=== PATIENT | female | born 1995 | race African-American/Black ===

== ENCOUNTER 2017-05-31 16:52 | Emergency (ER) | payer OTHER ==
[~2017-05-31] VITALS: Ht 154.9 cm; Wt 51.4 kg
[~2017-05-31 16:52] MED LIST: ONDA8TAB10 PO; PROC10TA PO; PYR50 PO
[2017-05-31 16:54] VITALS: BP 109/77; PULSE 74; RESP 16; O2SAT 100
--- NOTE | 2017-05-31 17:51 | ED.REPORT ---
HPI-Abd Pain F Under 39 Date of Service May 31, 2017 ED Provider: Dr. Moreno Pt is a generally healthy 22 y/o female presenting to the ED c/o abdominal cramping onset 2 days ago. The patient saw her PCP 5 days ago for nausea and vomiting and was told she had food poisoning due to bad elk steak the night before. She began to feel better better but 2 days ago she started her menses and was experiencing abdominal cramping and darker colored vaginal bleeding compared to her usual. Her menses did start about 1 week late. She denies increased vaginal bleeding, abnormal vaginal discharge, dysuria, lightheadedness , dizziness. She has a hx of PID in 2011. Nursing Notes Stated Complaint: FOOD POISONING/MENSTRUAL PAIN Chief Complaint: Female Abdominal Pain Nursing Notes Reviewed: Yes Allergies: Coded Allergies: hydrocodone bitartrate (Verified Adverse Reaction, Intermediate, Nausea, ) intolerance causing nausea only Scheduled PRN Ondansetron ODT (Ondansetron ODT) 8 Mg Tab.rapdis 8 MG PO Q4H PRN PRN For Nausea Prochlorperazine Maleate (Prochlorperazine) 10 Mg Tablet 10 MG PO Q8 PRN PRN For Nausea/Vomiting Pyridoxine (Vitamin B-6) 50 Mg Tablet 25 MG PO TID PRN PRN For Nausea General Time Seen by MD: 17:51 Chief Complaint Abdominal pain Hx Obtained From: Patient Arrived By: Walk-in Sudden in Onset?: No Onset Occurred: 2 days ago Symptom Duration: Since onset Progression since Onset: Constant Location: : Diffuse Quality: Cramping Severity: Current: Mild Severity: Maximum: Moderate Similar Sx Previous: No Past Medical History Past Medical History 1. Chronic Migraines 2. h/o PID secondary to Chlamydia, complicated by IUD and renal failure; now resolved (admitted for sepsis in 2012) 3. GERD Past Surgical History Cholecystectomy November 2012 Tonsillectomy Family History Positive for Gallbladder Disease Smoking History Current Some Day Smoker Social History Alcohol Use: Denies alcohol use Drug Use: Denies drug use Ambulatory Status Independent Review of Systems Constitutional: Denies: Chills, Fever Respiratory: Denies: Non-productive cough, Shortness of breath Cardiovascular: Denies: Chest pain, Dyspnea on exertion GI: Reports: Abdominal pain, Nausea, Vomiting, Denies: Diarrhea Female: Reports: Vaginal bleeding - abnl, Denies: Dysuria, Vaginal discharge Complete sys rev & neg: except as marked. Physical Exam Initial Vital Signs Vital Signs (First) Date Time Temp Pulse Resp B/P Pulse Ox O2 Delivery O2 Flow Rate FiO2 05/31/17 16:54 37.2 74 16 109/77 100 Room Air Initial VS: Reviewed, Vital signs normal Head / Eyes: Atraumatic, Normocephalic, PERRL ENT: Mucous membranes moist, Conjunctiva normal, No scleral icterus Neck: Supple, Full range of motion Extremities: Vascular intact, Neuro intact, No swelling Skin: Warm, Dry, No cyanosis Neurologic: Alert, Oriented, Nonfocal Psychiatric: Mood/affect normal, Behavior normal, Normal thought content General/Constitutional: Awake, Alert, No acute distress, Well appearing, Well developed, Well hydrated, Well nourished, Cooperative, Not toxic appearing Respiratory / Chest: Breath sounds NL, Breath sounds = bilat, No respiratory distress, No rales, No rhonchi, No wheezing, No retractions, No stridor Cardiovascular: Heart rate NL, Regular rhythm, Heart sounds NL, No gallop, No murmurs, No rubs Abdomen: Atraumatic, Soft, Non-tender, No guarding, No rebound, BS normoactive , No distention, No palpable mass Back: Full range of motion, Painless range of motion Interpretation & Diagnostics Lab Results Interpretation Test 05/31/17 18:22 Hold Urine Received (Received) Re-Eval/Medical Decision Med Decision/Clinical Course neg urine preg Re-Evaluation/Progress : Time of Eval: 19:10 Re-Evaluation/Progress Note: F/U instructions and RTER warnings given. All questions addressed. Counseled Regarding: Diagnosis, Lab results, Need for follow-up, When/why to return to ED Discharge & Departure Primary Impression: Dysmenorrhea Disposition: Home Discharge Condition All VS Reviewed: Yes Condition: Stable Patient Instructions: Dysmenorrhea (ED) Additional Instructions: Thank you for entrusting us with your care today. There are no concerning findings after a thorough interview, physical exam, and urine test Take ibuprofen as needed for menstrual cramping Follow-up with your PCP if symptoms are not improving Return to the ER for new or worsening symptoms Referrals: Deion Greenwood MD (PCP) Scribe Attestation Portions of this note were transcribed by Emiliano Sosa. I, Dr. Moreno personally performed the history, physical exam and medical decision-making; I reviewed and confirmed the accuracy of the information in the transcribed note. Signed by Paris Gastelum, 05/31/17 - 1929 copies to: Deion Greenwood MD, Gary R DO May 31, 2017 17:51 EMILIANO SOSA May 31, 2017 19:09
[2017-05-31 17:58] VITALS: BP 101/67; PULSE 72; RESP 18; O2SAT 98
[2017-05-31 19:48] VITALS: BP 107/72; PULSE 70; RESP 16; O2SAT 99
== END 2017-05-31 19:50 | disposition home or self-care (01) ==
LOC: SED 16:52
DX: N94.6 Dysmenorrhea, unspecified (principal); K21.9 Gastro-esophageal reflux disease without esophagitis; G43.909 Migraine, unspecified, not intractable, without status migrainosus; F17.200 Nicotine dependence, unspecified, uncomplicated; Z90.49 Acquired absence of other specified parts of digestive tract; Z88.5 Allergy status to narcotic agent